=== PATIENT | female | born 1940 | race Caucasian/White ===

== ENCOUNTER 2023-10-16 19:15 | Emergency (ER) | payer OTHER, SELFPAY ==
[2023-10-16 19:19] VITALS: BP 166/79; BMI 24.9
[2023-10-16 19:45] LABS: % Basophils 0.9 % (0-2); % Eosinophils 2.1 % (0-6); % Immature Granulocytes 0.5 % (0-0.5); % Lymphocytes 13.3 % (20.5-51.1); % Monocytes 8.9 % (1.7-9.3); % Neutrophils 74.3 % (42.2-75.2); Absolute Basophils 0.1 10^3/uL (0-0.2); Absolute Eosinophils 0.1 10^3/uL (0-0.7); Absolute Lymphocytes 0.8 10^3/uL (1.2-3.4); Absolute Monocytes 0.5 10^3/uL (0.1-0.6); Absolute Neutrophils 4.2 10^3/uL (1.4-6.5); Hematocrit 33.7 % (37.0-47.0); Mean Corp Hgb Conc. 35.6 g/dL (33.0-37.0); Mean Corpuscular Hgb 33.6 pg (27.0-31.0); Mean Corpuscular Volume 94.4 fL (81.0-99.0); Mean Platelet Volume 9.9 fL (7.4-10.4); Nucleated Red Blood Cells % 0 %; Platelet Count 214 10^3/uL (130-400); Red Blood Cell Count 3.57 10^6/uL (4.20-5.40); Red Cell Dist. Width 13.2 % (11.5-14.5); White Blood Cell Count 5.6 10^3/uL (4.8-10.8)
[2023-10-16 19:59] LABS: Blood Urea Nitrogen 15 mg/dl (7-17); Calcium 9.3 mg/dl (8.4-10.2); Carbon Dioxide 20 mmol/L (22-30); Chloride 108 mmol/L (98-107); Estimated Creatinine Clearance 45 ml/min; Glucose 109 mg/dl (70-99); Sodium 134 mmol/L (135-145); eGFR > 60.00
[2023-10-16 20:00] VITALS: BP 143/73
[2023-10-16 20:43] LABS: Potassium 3.6 mmol/L (3.5-5.1)
[2023-10-16 21:00] VITALS: BP 154/77
--- NOTE | 2023-10-16 21:00 | EDRN ---
Patient was placed on a bedpan and taken off it, call umaña in reach.
--- NOTE | 2023-10-16 21:55 | EDRN ---
Patient ambulated to the bathroom and back into bed without difficulty, reports a little lightheaded but no dizziness, FERMIN Garner aware
--- NOTE | 2023-10-16 22:05 | ED.GENMED ---
History of Present Illness
General
Chief Complaint: Dizziness
Time Seen by Provider: 10/16/23 19:28
Travel History
Have you had any contact with someone who has COVID-19?: No
Do you have any symptoms of coronavirus? Fever > 100 degrees, chills, cough, shortness of breath, sore throat, loss of taste or smell, muscle aches, or headache?: Unable to Answer
History of Present Illness
History of Present Illness:
83-year-old female with history of aortic stenosis, hypertension and hyperlipidemia presents to the emergency department viaEMS due to dizziness and vomiting. She notes that symptoms began earlier today and she attempted to take a friend's
meclizine which she promptly vomited back up. She was given 4 of Zofran and 1 mg of IV midazolam by EMS and symptoms improved. Patient was seen at a hospital in [place] just over 1 week ago due to similar symptoms, at that time was noted to be
markedly hypertensive and was diagnosed with a hypertensive crisis. At that time she had a CT scan of the head as well as chest x-ray that were negative. She received IV antihypertensives and was started on oral antihypertensives with good
improvement in symptoms. Patient denies any chest pain or exertional dyspnea
Past History
Past History
ED Past Medical History: HTN, Hypercholesterolemia and Hyperthyroidism
ED Past Surgical History: None
Social History
Tobacco: Former smoker (quit 25 yrs ago)
Alcohol: None
Drug: None
Employment: Employed ([employer])
Family History
Family History: Other (n/c- no cva)
Review of Systems
Review of Systems
Allergies reviewed?: Yes
All Other Systems: ROS reviewed and negative except as documented in HPI and ROS
Phy Exam
Physical Exam
Physical Exam:
GEN: Well appearing, NAD, WDWN
HEENT: Oral mucosa moist, no scleral icterus, no nasal congestion
Cardiac: Regular rate and rhythm, prominent systolic murmur
Lung: No respiratory distress, no tachypnea
MSK: No gross deformity or injuries
Skin: Good color, no pallor or jaundice, no rashes
Neuro: AO x3; CN II-XII grossly intact. BUE strength 5/5 in all yip, sensation intact and symmetric. BLE strength 5/5 in all yip, sensation intact and symmetric. Gait is steady without deficit, no ataxia
Psych: Calm, cooperative
Course
Orders/Labs/Results
Orders:
Orders
10/16/23 19:27
Basic Metabolic Panel Urgent
Complete Blood Count/With Diff Urgent
10/16/23 20:25
Potassium Urgent
Abnormal Lab Results
10/16/23
19:27
RBC 3.57 L 10^6/uL
(4.20-5.40)
Hct 33.7 L %
(37.0-47.0)
MCH 33.6 H pg
(27.0-31.0)
Absolute Lymphs (auto) 0.8 L 10^3/uL
(1.2-3.4)
Lymphocytes % 13.3 L %
(20.5-51.1)
Sodium 134 L mmol/L
(135-145)
Chloride 108 H mmol/L
(98-107)
Carbon Dioxide 20 L mmol/L
(22-30)
Glucose 109 H mg/dl
(70-99)
10/16/23 19:27
10/16/23 20:25
Vital Signs
Initial and Last Documented VS:
Initial Vital Signs
Temp Pulse Resp BP Pulse Ox
97.6 F 76 19 166/79 98
10/16/23 19:19 10/16/23 19:19 10/16/23 19:19 10/16/23 19:19 10/16/23 19:19
Last Documented Vital Signs
Temp Pulse Resp BP Pulse Ox
97.6 F 88 14 154/77 99
10/16/23 19:19 10/16/23 21:51 10/16/23 21:51 10/16/23 21:00 10/16/23 21:30
MDM/Problems Addressed
MDM/Problems Addressed:
Patient's dizziness is very likely peripheral vertigo. Certainly reassuring that she had a head CT performed at an outside hospital last week that was negative (records were requested and I personally reviewed these documents). She has no focal
neurologic deficits, blood pressure is only marginally elevated in the ER and thus not concerning for hypertensive crisis. She has noted to have a prominent systolic murmur from known aortic stenosis, she has no symptoms of acute heart failure at
this time however certainly this should be followed up on by her primary oim consultant. Will try the patient on a course of meclizine. Ultimately given the waxing waning nature of the symptoms I do not have any clinical concern for posterior CVA
*Critical Care Note
Total Time (30-74mins, 75-104mins- exclusive of procedures): Not Applicable
ED Attending Note
-
Portions of this chart may have been created with voice recognition software.� Occasional wrong word or��sound alike� substitutions may have occurred due to the inherent limitations of voice recognition software.
Discharge Plan
Departure
Patient Disposition: Home (Routine Discharge)
Date of Disposition: 10/16/23
Time of Disposition: 22:05
Patient with high blood pressure during this ER visit?: No
Discharge Problem:
Vertigo, Aortic stenosis
Instructions: Vertigo (a type of dizziness)
Prescriptions:
New
meclizine 12.5 mg tablet
12.5 mg PO TID PRN (Reason: dizziness) Qty: 20 0RF
No Action
atorvastatin 10 MG tablet
80 mg PO DAILY
lisinopril 40 MG tablet
40 mg PO DAILY
levothyroxine 112 MCG tablet
112 mcg PO DAILY
amlodipine 5 mg Tablet
5 mg PO DAILY
aspirin 81 mg Tablet,Delayed Release (Dr/Ec)
81 mg PO .M,W,F
fluticasone propionate 50 mcg/actuation [place],Suspension
2 spray INTRANASAL DAILY
loratadine 10 mg Tablet
10 mg PO DAILY
omeprazole 20 mg Tablet,Delayed Release (Dr/Ec)
20 mg PO DAILY
melatonin 5 mg Tablet
5 mg PO HS PRN (Reason: sleep)
Activity Restrictions/Additional Instructions:
I do not have any concerns that your aortic valve has any correlation to your dizziness symptoms however this still should be followed up by your oim consultant. If you develop chest pain, shortness of breath particular with exertion, or leg swelling
this would be concerning for worsening heart valve function. Please also schedule follow-up with your primary care physician in 5 to 7 days to discuss your vertigo symptoms
Interventions
Interventions:
*Risk Screen - Suicide Last Done: 10/16/23 19:19
*General Assessment Last Done: 10/16/23 19:19
*Neglect/Abuse Screening Last Done: 10/16/23 19:19
ED- Fall Risk Assessment Last Done: 10/16/23 20:18
*ED COVID-19 Vaccine History Last Done: 10/16/23 19:19
*Nursing Disposition Last Done: 10/16/23 22:28
ED- Neurological Assessment Last Done: 10/16/23 20:18
ED- Cardiac Assessment Last Done: 10/16/23 20:18
Discharge Date and Time
Discharge Date/Time: 10/16/23 22:29
Print Language: SPANISH
== END 2023-10-16 22:29 | disposition home or self-care (01) ==
LOC: EMR 19:15
PROVIDERS: Physician Assistant; EMERGENCY PHYSICIAN Emergency Medicine; FAMILY PHYSICIAN Internal Medicine
DX: R42 Dizziness and giddiness (principal); R11.10 Vomiting, unspecified; I35.0 Nonrheumatic aortic (valve) stenosis; Z87.891 Personal history of nicotine dependence
CPT/HCPCS: 99283; 80048; 84132; 85025

== ENCOUNTER → 2024-06-05 12:23 | Outpatient (REF) | payer OTHER, SELFPAY | LOC: HWRAD 12:23 | PROVIDERS: ATTENDING PHYSICIAN Internal Medicine | DX: J84.112 Idiopathic pulmonary fibrosis (principal) | CPT/HCPCS: 71250 ==